=== PATIENT | female | born 1985 | race Caucasian/White ===

== ENCOUNTER 2016-07-15 21:12 | Inpatient (IN) | payer OTHER ==
[~2016-07-15] VITALS: Ht 165.1 cm; Wt 127.2 kg
[~2016-07-15 21:12] MED LIST: PRENATAL TABLE1 EAC3 PO
[2016-07-15 22:18] VITALS: BP 166/61
[2016-07-15 22:33] VITALS: BP 151/75
[2016-07-15] MEDS ORDERED: IBUPROFEN800 MG PO (22:56)
[2016-07-15] MEDS ORDERED: ENDOCET 5-3251 EACH PO (22:56)
[2016-07-15 23:04] VITALS: BP 132/59
[2016-07-15 23:51] VITALS: BP 114/76
[2016-07-16 00:18] VITALS: BP 122/69
[2016-07-16 00:34] LABS: MEAN PLAT.VOLUME 12.2 uM^3 (9.5-12.4); PLATELET COUNT 167 K/uL (156-360)
[2016-07-16 00:47] LABS: HEMATOCRIT 29.8 % (36.0-46.0); MCH 33.4 PG (29.0-34.0); MCHC 35.2 G/DL (30.0-36.0); MCV 94.9 FL (83-99); RBC DIS.WIDTH-CV 13.3 % (11.8-14.6); RBC DIS.WIDTH-SD 43.9 % (39-53); RED BLOOD COUNT 3.14 M/uL (3.80-5.20); WHITE BLOOD COUNT 30.4 K/uL (4.1-10.2)
[2016-07-16 01:27] LABS: HEMATOLOGY COMMENT 1 SMEAR COMPATIBLE
[2016-07-16 01:28] LABS: EOSINOPHIL (%) 0.1 % (0-5); IMMATURE GRANULOCYTE (%) 0.4 % (0.0-0.7); IMMATURE GRANULOCYTE COUNT 1.2 K/uL; LYMPHOCYTE COUNT 1.8 K/uL (1.0-2.8); MONOCYTE (%) 4.7 % (3-12); MONOCYTE COUNT 1.4 K/uL (0-0.8); NEUTROPHIL (%) 88.9 % (45-76)
[2016-07-16 08:24] LABS: HEMATOCRIT 26.6 % (36.0-46.0); MCH 32.6 PG (29.0-34.0); MCHC 34.6 G/DL (30.0-36.0); MCV 94.3 FL (83-99); MEAN PLAT.VOLUME 12.3 uM^3 (9.5-12.4); PLATELET COUNT 145 K/uL (156-360); RBC DIS.WIDTH-CV 13.6 % (11.8-14.6); RBC DIS.WIDTH-SD 47.1 % (39-53); RED BLOOD COUNT 2.82 M/uL (3.80-5.20); WHITE BLOOD COUNT 22.1 K/uL (4.1-10.2)
[2016-07-16 08:30] VITALS: BP 118/74
[2016-07-16 11:30] LABS: ABS NEUTROPHIL COUNT 28.07; ANISOCYTOSIS 1+; HYPOCHROMASIA OCC; MICROCYTOSIS 1+; PLAT.SUFFICIENCY ADEQUATE; SEG.NEUTROPHILS 74.5 % (46.0-76.0)
[2016-07-16 15:15] VITALS: BP 137/91
[2016-07-17 01:34] VITALS: BP 109/57
[2016-07-17 07:35] VITALS: BP 126/89
== END 2016-07-17 13:39 | disposition home or self-care (01) | DRG 775 ==
LOC: LDRP-OP 21:12 → 2WEST 21:13 → LDRP-OP 08-14 10:04
PROVIDERS: Nurse Practitioner; Obstetrics & Gynecology
DX: O70.1 Second degree perineal laceration during delivery (principal); Z68.42 Body mass index [BMI] 45.0-49.9, adult; O99.214 Obesity complicating childbirth; Z3A.40 40 weeks gestation of pregnancy; E66.9 Obesity, unspecified; Z37.0 Single live birth; O62.3 Precipitate labor
CPT/HCPCS: 81003; 83030; 85025; 85027; 86850; 86900; 86901; J2790; J7120

== ENCOUNTER 2016-09-08 10:14 | Day surgery (SDC) | payer OTHER ==
[~2016-09-08] VITALS: Ht 165.1 cm; Wt 113.4 kg
[~2016-09-08 10:14] MED LIST changes: +ENDOCET 5-3251 EACH PO; +IBUPROFEN800 MG PO
[2016-09-08 10:39] VITALS: BP 120/61
[2016-09-08 11:08] LABS: EOSINOPHIL (%) 4.5 % (0-5); EOSINOPHIL COUNT 0.3 K/uL (0-0.3); HEMATOCRIT 37.7 % (36.0-46.0); IMMATURE GRANULOCYTE (%) 0.2 % (0.0-0.7); INSTRUMENT ABS NEUTROPHIL CT 2.8 K/uL; LYMPHOCYTE COUNT 2.2 K/uL (1.0-2.8); MCHC 32.4 G/DL (30.0-36.0); MCV 92.9 FL (83-99); MEAN PLAT.VOLUME 10.9 uM^3 (9.5-12.4); MONOCYTE (%) 8.1 % (3-12); MONOCYTE COUNT 0.5 K/uL (0-0.8); NEUTROPHIL (%) 48.2 % (45-76); NEUTROPHIL COUNT 2.8 K/uL (1.8-6.4); PLATELET COUNT 195 K/uL (156-360); RBC DIS.WIDTH-CV 12.6 % (11.8-14.6); RBC DIS.WIDTH-SD 42.6 % (39-53); RED BLOOD COUNT 4.06 M/uL (3.80-5.20); WHITE BLOOD COUNT 5.8 K/uL (4.1-10.2)
[2016-09-08 12:55] VITALS: BP 19/66
[2016-09-08 13:50] VITALS: BP 110/69
[2016-09-08 14:15] VITALS: BP 119/67
== END 2016-09-08 14:30 | disposition home or self-care (01) ==
LOC: SDC 10:14
PROVIDERS: Obstetrics & Gynecology
PROC: 10D17ZZ Extraction of Products of Conception, Retained, Via Natural or Artificial Opening (ICD-10-PCS; principal; 2016-09-08)
DX: O73.1 Retained portions of placenta and membranes, without hemorrhage (principal); O99.215 Obesity complicating the puerperium; E66.9 Obesity, unspecified; Z68.41 Body mass index [BMI] 40.0-44.9, adult
CPT/HCPCS: 85025; 86850; 86870; 86900; 86901; 86905; 86920; 88305; J1100; J2250; J2405; J3010; J7120